=== PATIENT | female | born 1950 | race Caucasian/White ===

== ENCOUNTER 2023-09-14 07:48 | Day surgery (SDC) | payer OTHER ==
[2023-09-11 14:51] LABS: Absolute Lymphocytes (CBC) 1.3 K/uL (0.7-4.9); Hematocrit 38.3 % (36.0-45.0); Lymphocytes % 15.3 % (15.3-44.8); MCV 97.5 fL (80-100); MPV 7.6 fL (7.6-11.3); Platelets 373 thou/uL (152-406); RBC Red Blood Cell Count 3.93 M/uL (3.86-4.86)
--- NOTE | 2023-09-11 14:53 | RAD REPORT ---
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 COMPARISON: No comparisons TECHNIQUE: PA and lateral views of the chest were obtained. FINDINGS: The lungs are hyperexpanded compatible with COPD. The heart is upper limit of normal in si ze. There is advanced dextroscoliosis of the thoracic spine. Aortic atherosclerosis. IMPRESSION: COPD without acute process identified. Advanced thoracic dextroscoliosis.
[2023-09-11 14:57] LABS: Protime INR 1.03
[2023-09-11 15:07] LABS: Potassium 3.4 mEq/L (3.5-5.1)
--- NOTE | 2023-09-12 18:05 | EKG ---
Test Date: 2023-09-11 Test Time: 14:20:05 Hair Stylist: HODAN MEASUREMENT RESULTS: Intervals: Rate: 53 OR: 146 QRSD: 92 QT: 416 QTc: 390 [place]: P: 36 OR: 146 QRS: 15 T: 57 INTERPRETIVE STATEMENTS: Sinus bradycardia Otherwise normal ECG No previous ECG available for comparison Electronically Signed On 09-12-23 18:03:21 CDT by Michael Mueller
[2023-09-14] MEDS ORDERED: NA CHLORIDE 0.9% 500 ML ONE (08:36)
[2023-09-14 08:55] VITALS: TEMP 98
[2023-09-14] MEDS ORDERED: ATROPINE SULF 1 MG/10 ML SYR IV ONE (13:18)
[2023-09-14] MEDS ORDERED: MIDAZOLAM HCL 2 MG/2 ML INJ ONE (13:18)
[2023-09-14] MEDS ORDERED: FENTANYL CITR 100 MCG/2 ML ONE (13:18)
[2023-09-14 17:04] VITALS: O2SAT 100
[2023-09-14 17:12] VITALS: BP 102/71
--- NOTE | 2023-09-14 17:19 | OP ---
Date of Procedure: 09/14/2023 Surgeon: NAVARRO SAMPSON Procedure Performed: Peripheral angiogram. Indication: Peripheral vascular disease. Access: Right radial artery 6-Canadian closed with TR band. Complications: None. Bleeding: Less than 20 mL. Description Of Procedure: After risks, benefits, alternatives were explained, patient agreed to proc edure and signed informal consent. Patient was brought into the cardiac catheterization laboratory, prepped and draped in usual sterile fashion. Then I accessed right radial artery using pediatric karel ropuncture kit, placed a 6-Canadian Slender sheath and then took a long 4-Canadian pigtail catheter and p laced it in distal aorta, performed distal aortogram and the runoff. Then, I removed the catheter an d then the sheath and placed TR band with good hemostasis. Findings: 1.Distal aorta has diffuse 40% stenosis. 2.Right lower extremity: The right common iliac and through connection of the right external iliac is 80% to 90% heavily calcified stenosis. The right external iliac has 80% stenosis and then the pro yoandy is widely patent and the SFA diffuse 30% to 40% stenosis and she has triple vessel runoff below the knee with no significant disease. 3.Left lower extremity: Left common iliac is normal. Left internal iliac is normal. The left exte rnal iliac has focal 70% stenosis, heavily calcified, and then the profunda is patent and left SFA di ffuse 30% to 40% stenosis but with patent 3-vessel below the knee. Conclusion: Severe bilateral peripheral vascular disease, mainly inflow with vascular disease. Plan: A staged peripheral intervention on the right external iliac and common iliac artery with shoc k wave first and then we will work on the left leg at a later occasion. /PHYLLISL Voice ID: [id number] Report ID: [id number]
== END 2023-09-14 16:35 | disposition home or self-care (01) ==
LOC: CCL 07:48
PROVIDERS: ATTEND Internal Medicine
DX: I70.223 Atherosclerosis of native arteries of extremities with rest pain, bilateral legs (principal); I10 Essential (primary) hypertension; E78.2 Mixed hyperlipidemia; Z88.8 Allergy status to other drugs, medicaments and biological substances; Z79.899 Other long term (current) drug therapy
CPT/HCPCS: 93005; 85025; 80048; 36415; 83721; 85610; 85730; 71046; 36200; 75630; C1893; J2250; J3010; J7040; J0461